=== PATIENT | female | born 1985 | race Asian ===

== ENCOUNTER 2021-03-12 04:04 | Inpatient (IN) | payer OTHER, SELFPAY ==
[2021-03-12] VITALS (15 sets, daily range): BP systolic 93–129; BP diastolic 52–87; PULSE 66–83; RESP 16–18; TEMP 35.8–37.2; O2SAT 98–100; BMI 27.0
[2021-03-12 04:55] LABS: Basophils Percent Auto 0.4 % (0.2-1.2); Eosinophils Percent Auto 0.5 % (0-4.4); Hematocrit 45.6 % (37.0-47.0); Hemoglobin 15.2 g/dL (12.0-15.0); Immature Granulocyte Absolute 0.05 K/mm3 (0.00-0.031); Immature Granulocyte Percent A 0.6 % (0-0.5); Lymphocytes Absolute Auto 1.52 K/mm3 (0.9-3.2); Lymphocytes Percent Auto 17.9 % (18.3-44.2); Mean Corpuscular HGB Conc 33.3 g/dl (32-36); Mean Corpuscular Hemoglobin 31.8 pg (26-34); Mean Corpuscular Volume 95.4 fl (80-100); Mean Platelet Volume 9.6 fl (7.4-10.4); Monocytes Absolute Auto 0.4 K/mm3 (0.1-0.6); Monocytes Percent Auto 5.1 % (2.6-8.5); Neutrophils Absolute Auto 6.4 K/mm3 (1.3-6.7); Neutrophils Percent Auto 75.5 % (45.5-73.1); Platelet Count Result 172 k/mm3 (150-375); Red Blood Count 4.78 M/mm3 (4.2-5.4); Red Cell Distribution Width 12.4 % (11.5-14.5); White Blood Count 8.5 K/mm3 (4.5-10.0)
--- NOTE | 2021-03-12 05:06 | LDADM ---
This patient, Soto Bruner, was admitted to Labor/Delivery/Recovery 109 on 03/12/21 at 04:04. Plans for labor, pain management and were discussed with patient. Patient/family oriented to hospital policies and general routines including ID bracelet, bed and alarms, visiting hours, pain management, procedures, bathroom and other care routines, personal items, smoking policy, room service/diet and guest tray routines, security routines, and visiting hours. Patient/Family are encouraged to report perceived risks to care and to ask questions if they do not understand what they are told or what they should do. See OBIX for further documentation.
--- NOTE | 2021-03-12 05:16 | P.PNAN_ITS ---
Anes - Eval Pre Procedure Procedure: labor epidural Date/Time: 03/12/21 05:16 Surgeon: jin Pre Op Diagnosis: Contractions Patient Data Age: 36 Gender: F Height: 1.63 m Weight: 71.5 kg Last Vital Signs Temp 36.8 C 03/12/21 04:32 Pulse 77 03/12/21 05:01 BP 129/52 L 03/12/21 05:01 Allergies Allergy/AdvReac Type Severity Reaction Status Date / Time No Known Allergies Allergy Verified 02/13/21 13:39 Home Medications Medication Instructions Recorded Confirmed Type prenat.vits,carmen,umg-gord-cahal 1 tablet PO DAILY 02/13/21 02/13/21 History [ #2] Laboratory Tests 03/12/21 03/12/21 04:48 04:48 WBC 8.5 K/mm3 K/mm3 (4.5-10.0) RBC 4.78 M/mm3 M/mm3 (4.2-5.4) Hgb 15.2 g/dL H g/dL (12.0-15.0) Hct 45.6 % % (37.0-47.0) MCV 95.4 fl fl (80-100) MCH 31.8 pg pg (26-34) MCHC 33.3 g/dl g/dl (32-36) RDW 12.4 % % (11.5-14.5) Plt Count 172 k/mm3 k/mm3 (150-375) MPV 9.6 fl fl (7.4-10.4) Immature Gran % (Auto) 0.6 % H % (0-0.5) Neut % (Auto) 75.5 % H % (45.5-73.1) Lymph % (Auto) 17.9 % L % (18.3-44.2) [place] % (Auto) 5.1 % % (2.6-8.5) Eos % (Auto) 0.5 % % (0-4.4) Baso % (Auto) 0.4 % % (0.2-1.2) Lymph # (Auto) 1.52 K/mm3 K/mm3 (0.9-3.2) [place] # (Auto) 0.4 K/mm3 K/mm3 (0.1-0.6) Eos # (Auto) 0.0 K/mm3 K/mm3 (0-0.3) Baso # (Auto) 0.0 K/mm3 K/mm3 (0.0-0.1) Abs Immat Gran (auto) 0.05 K/mm3 H K/mm3 (0.00-0.031) Absolute Neuts (auto) 6.4 K/mm3 K/mm3 (1.3-6.7) Absolute Nucleated RBC 0.0 K/mm3 K/mm3 (0.0-0.012) Nucleated RBC % 0.0 % % (0.0-0.2) RPR Pending Patient hx anesthesia problems: none Family hx anesthesia problems: none [facility] Family History Family History (Updated 02/13/21 @ 13:41 by Yulia Rae RN) Other No pertinent family history Social History Social History Smoking status: Never smoker Substance use: never Spiritual care concerns: No Exam Day of Procedure 03/12/21 05:16
--- NOTE | 2021-03-12 08:14 | WPDOBADMIT ---
Obstetrics - Admit Note Admission Note: record reviewed. Additions to the history and/or subsequent changes in the physical findings follow. 36 y/o G1 at 39 4/7 weeks here with contractions. GBS neg. uncomplicated. AVSS NST reactive TOCO: contractions every 2-3 min ABD soft, nontender, gravid, vertex EXT nontender Cervix 8/100/0. AROM with clear fluid. Vertex. A: IUP at term with labor. P: Anticipate .
[2021-03-12] MEDS: OXYTOCIN 30 UNITS/NS 500 ML 30 UNITS/500 ML BAG 999 UNITS IV CONT (09:57)
--- NOTE | 2021-03-12 10:11 | PM.OBPRVD ---
OB - Delivery Note Procedure Delivery date: 03/12/21 Procedure: Induction method: none Delivery augmentation: rupture of membranes Delivery monitor: external FHT and external uterine Route of delivery: Laceration Description: Perineal - 2nd Degree Delivery repair: vicryl (3-0) Specimen: Yes (cord blood) Quantitative Blood Loss (ml): 215 Anesthesia type: Local (1% lidocaine) Disposition: PACU Complications: None Narrative: 36 y/o G1 at 39 4/7 weeks gestation who presented to the hospital with contractions. Labor was diagnosed. Amniotomy was performed with return of clear fluid. Her labor progressed without augmentation and her cervix dilated completely. She pushed with good effort and delivered the infant's head to the perineum, followed by the body. The nose and mouth were bulb suctioned. After a delay, the cord was clamped and cut. The infant was handed off the field. Cord blood was collected. The placenta delivered spontaneously and was grossly normal in appearance. The usual 3 vessel cord was noted. A second degree midline perineal laceration was sustained. This was infiltrated with 9 mL of 1% lidocaine and was reapproximated using 3 0 Vicryl in the usual layered fashion. Excellent hemostasis resulted as did excellent reapproximation of the normal anatomy. Needle and instrument counts were correct. The patient was taken to recovery room in stable condition. The infant went to the nursery in stable condition. I was present and scrubbed for the entire delivery. [place] Baby Date of : 03/12/21 Time of : 09:53 Weeks of gestation at delivery: 39 Infant gender: Female Weight (pounds): 6 Weight (ounces): 13 presentation: vertex position: Left Occiput Anterior Placenta delivery description: Spontaneous and Normal Configuration cord vessel description: 3 Vessels and Delayed Cord Clamping score one minute: 8 score five minutes: 9
--- NOTE | 2021-03-12 10:14 | PM.OBDSVD ---
DS: Admitting Diagnosis Admitting Diagnosis Admitting Diagnosis: Labor at 39 4/7 weeks DS: Discharge Diagnosis Discharge Diagnosis (1) (normal spontaneous vaginal delivery): Code(s): O80 - Encounter for full-term uncomplicated delivery Status: Acute OB - DS: Summary OB Procedures : None OB Procedures Intrapartum: Spontaneous Vag Delivery OB Procedures: : None DS: Data Data Completed and Pending Labs on day of discharge: Labs from last 24 hours 03/12/21 03/12/21 03/12/21 04:48 04:48 04:48 WBC 8.5 RBC 4.78 Hgb 15.2 H Hct 45.6 MCV 95.4 MCH 31.8 MCHC 33.3 RDW 12.4 Plt Count 172 MPV 9.6 Immature Gran % (Auto) 0.6 H Neut % (Auto) 75.5 H Lymph % (Auto) 17.9 L [place] % (Auto) 5.1 Eos % (Auto) 0.5 Baso % (Auto) 0.4 Lymph # (Auto) 1.52 [place] # (Auto) 0.4 Eos # (Auto) 0.0 Baso # (Auto) 0.0 Abs Immat Gran (auto) 0.05 H Absolute Neuts (auto) 6.4 Absolute Nucleated RBC 0.0 Nucleated RBC % 0.0 RPR Pending Blood Type A Positive Antibody Screen Negative Discharge Plan Discharge Attending physician on discharge: Jw Juarez Discharging Clinician: Jw Juarez Patient Disposition: Home, Self-Care Activity: no preference Diet: regular Discharge Instructions: Call or return if temperature above 100.4? F, increased abdominal pain, increased vaginal bleeding or any new problems. Stand Alone Forms: General Discharge Information Follow-up/Referrals: Jw Juarez MD [Physician] - 6 Weeks Discharge Medications: New ibuprofen 600 mg tablet 600 mg PO Q6H PRN (Reason: cramps) Qty: 30 RF: 0 No Action #2 Tablet 1 tablet PO DAILY RF: 0 Date of admission: 03/12/21 04:04 Primary Care Provider: Lluvia Friedman Admitting Provider: Jw Juarez Attending physician on admission: Jw Juarez Condition: Stable
[2021-03-12] MEDS: OXYTOCIN 30 UNITS/NS 500 ML 30 UNITS/500 ML BAG 125 UNITS IV CONT (10:33)
[2021-03-12 11:53] LABS: Rapid Plasma Reagin Non-Reactive (NonReactive)
[2021-03-12] MEDS: BENZOCAINE 20% AER SPR (*SP) 56 GM CAN 1 SPRAY TOPICAL (12:46)
[2021-03-12] MEDS: WITCH HAZEL 40 PADS 1 PAD TOPICAL (12:46)
--- NOTE | 2021-03-12 13:25 | PC.NURSE ---
Patient transferred to post room #1325 via wheelchair. Support person present. Oriented to unit, room, information board, rooming in, admission packet and security measures. Patient verbalizes understanding.
--- NOTE | 2021-03-12 13:50 | PC.NURSE ---
Mother called out for assist with feeding, reporting eagerly fed for first feeding. Reviewed infant feeding cues, frequencies, duration of feedings, feeding elimination flow sheet, and signs of adequate intake. Demonstrated stimulation techniques to wake for feeding. Assisted with to breast. Reviewed positioning/alignment in cross cradle, holding breast in ?U? hold and guided asymmetrical latch on. Infant able to latch correctly after a few attempts. nursed eagerly, with steady draws and frequent swallowing noted. Reviewed signs of a correct latch, effective nursing and suck swallow ratio. would slip to shallow latch, mother reports tenderness. Demonstrated how to adjust latch more deeply while feeding. Mother reports she can feel change in latch and has no tenderness. Suggested mother stimulate while feeding to increase stimulate, increase intake and to assist with maintaining deep latch. Nipple care reviewed of lanolin after feedings, warm compresses as needed. Instructed mother to call out for RN assistance if she is unable to latch for feeding or she has discomfort with nursing. Instructed feeding should be initiated three hours from start of last feeding or if feeding cues are noted before. Mother voiced understanding of information shared.
[2021-03-12] MEDS: LANOLIN (LANSINOH) 7.5 GM CREAM 1 APPLIC TOPICAL (14:23)
[2021-03-13 02:40] VITALS: BP 110/72; PULSE 73; RESP 18; TEMP 37; O2SAT 97
[2021-03-13 04:53] VITALS: BP 117/76; PULSE 65; RESP 18; TEMP 36.9; O2SAT 99
--- NOTE | 2021-03-13 08:04 | PM.OBPNVD ---
OB - PN: Subj Subjective Date/time seen: 03/13/21 08:04 Narrative: Pain OK. OB - PN: Obj Data Labs CBC & Chem 7: 03/13/21 04:14 Labs: Laboratory Results - last 24 hr 03/12/21 03/13/21 04:48 04:14 Hgb 13.0 Hct 39.0 RPR Non-reactive OB - PN A/P Plan Comments: A: PPD#1, doing well. P: Routine care. Exam Psych: Other: AVSS ABD soft, nontender, fundus firm EXT nontender
[2021-03-13 08:30] VITALS: BP 115/69; PULSE 74; RESP 16; TEMP 36.9; O2SAT 98
[2021-03-13] MEDS: MULTIVIT/MIN/PREN/FOL AC/IRON TABLET 1 TAB PO (08:33)
[2021-03-13] MEDS: IBUPROFEN 600 MG TABLET PO ×2 (08:33→20:40)
--- NOTE | 2021-03-13 13:12 | PC.NURSE ---
Consulted with patient, reviewed feeding cues, frequencies, duration of feedings, feeding elimination flow sheet, and signs of adequate intake. Demonstrated stimulation techniques to wake for feeding. Mom independently latched to left breast. Reviewed positioning/alignment, holding breast and asymmetrical latch on. was able to latch correctly. Infant nursed eagerly, with steady draws and occasional swallowing noted. Reviewed signs of a correct latch, effective nursing and suck swallow ratio. was able to maintain latch without discomfort to mother. Nipple care reviewed. Instructed mother to call out for RN assistance if she is unable to latch infant for feeding or she has discomfort with nursing. Instructed feeding should be initiated three hours from start of last feeding or if feeding cues are noted before. Mother voiced understanding of information shared.
[2021-03-13 20:00] VITALS: BP 122/82; PULSE 64; RESP 16; TEMP 36.2; O2SAT 99
[2021-03-14 07:30] VITALS: BP 116/82; PULSE 78; RESP 16; TEMP 36.9
--- NOTE | 2021-03-14 09:03 | PM.OBPNVD ---
OB - PN: Subj Subjective Date/time seen: 03/14/21 09:03 Narrative: Pain OK. Would like to go home. OB - PN: Obj Data Labs CBC & Chem 7: 03/13/21 04:14 OB - PN A/P Plan Comments: A: PPD#2, doing well. P: Home to f/u 6 weeks. Exam Psych: Other: AVSS ABD soft, nontender, fundus firm EXT nontender
--- NOTE | 2021-03-14 09:30 | PC.NURSE ---
Observed mother is able to independently latch with appropriate positioning/alignment. She denies any nipple discomfort, is feeding as required and waking infant to feed if needed. has had at least 8 effective feedings in the past 24 hours, and is currently meeting outcomes for weight, output, jaundice and feeding frequencies. Mother states she feels confident to continue effective at home. Reviewed transition to breast milk, signs of adequate intake, and engorgement/relief. Instructed to call ICP if intake/output less than required. Reviewed regular medications mother is taking. Information provided per Nataliia. Reviewed community resources on the [facility] website and in the Mom/Baby guide. Information on outpatient services provided. Mother has no further questions at this time.
[2021-03-15 10:17] VITALS: BP 111/73; PULSE 78; RESP 16; TEMP 37.2; O2SAT 98
== END 2021-03-14 11:14 | disposition home or self-care (01) | DRG 807 ==
LOC: ANHLDR 10:14 → ANHOB2 13:29
PROVIDERS: Admitting Provider Student in an Organized Health Care Education/Training Program; PCP Family Medicine; Visit Provider Obstetrics & Gynecology
DX: O70.1 Second degree perineal laceration during delivery (principal); Z37.0 Single live birth; Z3A.39 39 weeks gestation of pregnancy
CPT/HCPCS: 36415; 85014; 85018; 85025; 86592; 86850; 86900; 86901; A9270; J2590

== ENCOUNTER 2023-07-20 15:38 | Outpatient (CLI) | payer OTHER, SELFPAY ==
--- NOTE | ~2023-07-20 | XR_ITS ---
AP and oblique views of the right ribs, and PA and lateral chest radiographs Clinical History: Pain Findings: No rib fracture is seen. Osseous alignment is anatomic. Lungs are clear, without focal cons olidation or pleural effusion. Cardiomediastinal contour is within normal limits. Soft tissues are un remarkable. Impression: No rib fracture is seen. Reviewed, dictated and finalized at [facility]. RNEY RECRUITER Impression: No rib fracture is seen.
[2023-07-20 16:14] LABS: Basophils Percent Auto 0.4 % (0.2-1.2); Eosinophils Absolute Auto 0.1 K/mm3 (0-0.3); Eosinophils Percent Auto 1.1 % (0-4.4); Hematocrit 42.2 % (37.0-47.0); Hemoglobin 13.6 g/dL (12.0-15.0); Immature Granulocyte Absolute 0.03 K/mm3 (0.00-0.031); Immature Granulocyte Percent A 0.3 % (0-0.5); Lymphocytes Absolute Auto 2.25 K/mm3 (0.9-3.2); Lymphocytes Percent Auto 23.4 % (18.3-44.2); Mean Corpuscular HGB Conc 32.2 g/dl (32-36); Mean Corpuscular Hemoglobin 29.9 pg (26-34); Mean Corpuscular Volume 92.7 fl (80-100); Mean Platelet Volume 9.3 fl (7.4-10.4); Monocytes Absolute Auto 0.4 K/mm3 (0.1-0.6); Monocytes Percent Auto 4.4 % (2.6-8.5); Neutrophils Absolute Auto 6.8 K/mm3 (1.3-6.7); Neutrophils Percent Auto 70.4 % (45.5-73.1); Platelet Count Result 225 k/mm3 (150-375); Red Blood Count 4.55 M/mm3 (4.2-5.4); Red Cell Distribution Width 12.4 % (11.5-14.5); White Blood Count 9.6 K/mm3 (4.5-10.0)
[2023-07-20 16:22] LABS: Alanine Aminotransferase 16 U/L (6-35); Albumin Level 4.3 g/dL (3.5-5.1); Alkaline Phosphatase 45 U/L (38-126); Anion Gap 8 mmol/L (8-16); Aspartate Amino Transferase 24 U/L (14-36); Bilirubin,Total 0.5 mg/dL (0.2-1.3); Blood Urea Nitrogen 15 mg/dL (7-17); Calcium 9.7 mg/dL (8.4-10.2); Carbon Dioxide 26 mmol/L (22-30); Chloride 102 mmol/L (98-107); Cholesterol 232 mg/dL (0-200); Estimated Glomerular Filt Rate > 60; Glucose 101 mg/dL (65-110); HDL Direct 79 mg/dL; Sodium 136 mmol/L (137-145); Triglycerides 142 mg/dL (<150)
[2023-07-20 16:24] LABS: D Dimer < 0.27 ug/mL (<0.48)
[2023-07-20 16:33] LABS: LDL Cholesterol Direct 120 mg/dL
== END 2023-07-20 15:39 | disposition home or self-care (01) ==
PROVIDERS: PCP Family Medicine; Visit Provider Family Medicine
DX: Z00.00 Encounter for general adult medical examination without abnormal findings (principal); R07.81 Pleurodynia; R05.9 Cough, unspecified; E78.2 Mixed hyperlipidemia; R53.83 Other fatigue
CPT/HCPCS: 36415; 71046; 71100; 80053; 80061; 85025; 85380

== ENCOUNTER 2023-11-24 09:21 | Outpatient (CLI) | payer OTHER, SELFPAY ==
--- NOTE | ~2023-11-24 | XR_ITS ---
Clinical Indication: Cough PA and lateral views of the chest: Comparison: 07/20/2023 Findings: The lungs are clear, without evidence of focal consolidation or pleural effusion. Cardiome diastinal silhouette is within normal limits. Bones and soft tissues are unremarkable. Impression: Normal chest. Reviewed, dictated and finalized at location . Impression: Normal chest.
[2023-11-24 10:27] LABS: Hematocrit 41.2 % (37.0-47.0); Hemoglobin 13.3 g/dL (12.0-15.0); Mean Corpuscular HGB Conc 32.3 g/dl (32-36); Mean Corpuscular Hemoglobin 29.8 pg (26-34); Mean Corpuscular Volume 92.4 fl (80-100); Mean Platelet Volume 9.5 fl (7.4-10.4); Platelet Count Result 202 k/mm3 (150-375); Red Blood Count 4.46 M/mm3 (4.2-5.4); Red Cell Distribution Width 12.5 % (11.5-14.5); White Blood Count 5.4 K/mm3 (4.5-10.0)
[2023-11-24 10:31] LABS: Appearance Urine Clear (Clear); Bilirubin Urine Negative (Negative); Blood Urine Negative (Negative); Color Urine Yellow (Yellow); Glucose Urine UA Negative (Negative); Ketones Urine Negative (Negative); Leukocyte Esterase Ur Negative LEU/UL (Negative); Nitrate Urine Negative (Negative); Protein Urine Negative (Negative); Specific Grav Ur 1.014 (1.001-1.035); Urobilinogen Urine 0.2 mg/dL (<2.0); pH Urine 5.5 (5.0-9.0)
[2023-11-24 10:37] LABS: Alanine Aminotransferase 15 U/L (6-35); Albumin Level 3.8 g/dL (3.5-5.1); Alkaline Phosphatase 56 U/L (38-126); Anion Gap 4 mmol/L (8-16); Aspartate Amino Transferase 22 U/L (14-36); Bilirubin,Total 0.2 mg/dL (0.2-1.3); Blood Urea Nitrogen 6 mg/dL (7-17); Carbon Dioxide 27 mmol/L (22-30); Chloride 106 mmol/L (98-107); Estimated Glomerular Filt Rate > 60; Glucose 96 mg/dL (65-110); Lipase 59 U/L (23-300); Potassium 3.5 mmol/L (3.4-5.0); Sodium 137 mmol/L (137-145)
[2023-11-24 10:43] LABS: Add Urine Microscopic? NO
[2023-11-24 12:44] LABS: Free T4 Free Thyroxine 1.01 ng/mL (0.78-2.19)
== END 2023-11-24 09:22 | disposition home or self-care (01) ==
PROVIDERS: PCP Family Medicine; Visit Provider Physician Assistant
DX: R10.9 Unspecified abdominal pain (principal); R05.9 Cough, unspecified; D64.9 Anemia, unspecified; R53.83 Other fatigue; Z13.1 Encounter for screening for diabetes mellitus
CPT/HCPCS: 36415; 71046; 80053; 83690; 84439; 84443; 85027

== ENCOUNTER 2024-01-22 12:39 | Outpatient (CLI) | payer OTHER, SELFPAY ==
--- NOTE | 2024-01-22 16:53 | WPDPFTINT ---
PFT Procedure Performed PFT Procedure Performed Spirometry with Pre/Post Bronchodilator Plethysmography (Lung Vol) Diffusing Cap (DLCO) Flow Vol Loop PFT Interpretation This is a pulmonary function test with pre and post-bronchodilator spirometry, plethysmography and diffusing capacity. The test was performed and results interpreted in accordance with the 2019 and 2005 ATS/ERS Task Force guidelines respectively using the Global Lung Function Initiative-2012 reference equations. Patient demonstrated good effort and cooperation. Reproducibility criteria were met. The quality of the pre bronchodilator spirometry maneuver was Grade A and post bronchodilator spirometry maneuver was Grade A. Findings: Spirometry: The contour the inspiratory and expiratory flow tracing are normal. The pre bronchodilator FVC is 4.01 L, 108% predicted. The pre bronchodilator FEV 1 is 3.45 L, 111% predicted. The pre bronchodilator FEV1: FVC ratio is 86%. The post bronchodilator FVC is 3.78 L, representing a 6% decrease. The post bronchodilator FEV1 is 3.39 L, representing a 2% decrease. The post bronchodilator FEV1: FVC ratio is 90%. Plethysmography: The total lung capacity is 5.28 L, 102% predicted. The functional residual capacity is 2.78 L, 97% predicted. The residual volume is 1.27 L, 79% predicted. Diffusing capacity: The diffusing capacity unadjusted for hemoglobin and carboxyhemoglobin is 24.6, 101% predicted. The diffusing capacity adjusted for alveolar volume is 5.13, 109% predicted. Impression: The spirometry is normal without evidence of an obstructive abnormality. There is no significant improvement after inhaling a single dose of albuterol. The lung volumes are normal. The diffusing capacity is normal. There are no prior studies for comparison
== END 2024-01-22 12:40 | disposition home or self-care (01) ==
LOC: ANHLAB 12:40
PROVIDERS: PCP Family Medicine; Visit Provider Internal Medicine Pulmonary Disease
DX: J40 Bronchitis, not specified as acute or chronic (principal)
CPT/HCPCS: 94060; 94726; 94729